=== PATIENT | female | born 1960 | race Caucasian/White ===

== ENCOUNTER → 2021-11-10 | Outpatient (CLI) | payer OTHER ==
[~2021-11-10] MED LIST: Crutch1 EACH MISC; FAMO20 PO; Norco 5-325 Ta1 EACH PO; RANI150 PO
[2021-11-10 19:06] LABS: Magnesium, Blood 2.2 mg/dL (1.6-2.4)
[2021-11-10 19:09] LABS: Bun/Creatinine Ratio 23.2 (12.0-20.0); Calcium, Blood 10.2 mg/dL (8.5-10.1); Creatinine, Blood 0.73 mg/dL (0.40-1.00); Phosphorus, Blood 4.1 mg/dL (2.5-4.9); Potassium, Blood 4.4 mmol/L (3.5-5.5)
== END | disposition home or self-care (01) ==
LOC: LAB SHORT 17:15 → LAB 17:15
PROVIDERS: Family Medicine
DX: R25.2 Cramp and spasm (principal)
CPT/HCPCS: 80048; 83735; 84100